=== PATIENT | female | born 1940 | race Caucasian/White ===

== ENCOUNTER 2016-09-28 16:26 | Emergency (ER) | payer MEDICARE, OTHER ==
[~2016-09-28] VITALS: Ht 162.6 cm; Wt 67.4 kg
[~2016-09-28 16:26] MED LIST: DENO60DI SQ; ENOX80SY5 SQ; LEVO100T5 PO; LEVO75TA5 PO; ROSU10TA PO; TRIA1CAP3 PO; WARF7.5T6 PO-COUM; ZOLP10TA PO
[2016-09-28 17:40] LABS: BLOOD UREA NITROGEN 20 mg/dL (7-18)
[2016-09-28] MEDS ORDERED: PHYTONADIONE 10 MG/ML, 1ML ONE (17:44)
[2016-09-28] MEDS ORDERED: PHYTONADIONE 5 MG in SODIUM CHLORIDE 0.9% 50 ML IV ONE (18:00)
[2016-09-28] MEDS ORDERED: POTASSIUM CHLORIDE 20 MEQ TAB.ER.PRT PO ONE (18:30)
[2016-09-28] MEDS ORDERED: POTASSIUM CHLORIDE 20 MEQ TAB.ER.PRT ONE (19:54)
[2016-09-28 20:03] VITALS: BP 116/71
== END 2016-09-28 20:06 | disposition home or self-care (01) ==
LOC: ED 19:03
DX: D68.8 Other specified coagulation defects (principal); Z85.3 Personal history of malignant neoplasm of breast
CPT/HCPCS: 36415; 80048; 82040; 85025; 85610; 85730; 96365; 99285; J3430

== ENCOUNTER 2017-04-25 12:00 | Inpatient (IN) | payer MEDICARE, OTHER ==
[~2017-04-25] VITALS: Ht 160 cm; Wt 64.8 kg
[2017-04-25 13:10] LABS: HEMATOCRIT 41.2 % (34.6-47.8); HEMOGLOBIN 14.1 g/dL (11.7-16.4); WHITE BLOOD COUNT 8.8 x10^3/uL (3.4-10)
[2017-04-25 13:18] LABS: BLOOD UREA NITROGEN 12 mg/dL (7-18)
[2017-04-25 13:50] LABS: IS PT STATUS REG ER OR PRE ER? YES
[2017-04-25] MEDS ORDERED: RIVA20TA PO (16:27)
[2017-04-25] MEDS ORDERED: VALA1000 PO (16:29)
[2017-04-25] MEDS ORDERED: DEXAMETHASONE 4 MG/ML, 1ML IVPush ONE (16:30)
[2017-04-25] MEDS ORDERED: DEXAMETHASONE 4 MG/ML, 1ML ONE (16:32)
[2017-04-25] MEDS ORDERED: morphine SULFATE 10 MG/ML, 1ML IVPush PRN (17:30)
[2017-04-25] MEDS ORDERED: SODIUM CHLORIDE FLUSH 10ML SYR IVF PRN (17:30)
[2017-04-25] MEDS ORDERED: ONDANSETRON 2MG/ML, 2ML IVPush PRN (18:00)
[2017-04-25] MEDS ORDERED: hydrALAzine 20 MG/ML, 1ML IVPush PRN (18:00)
[2017-04-25] MEDS: CEFTRIAXONE PMX 1GM/50ML 50 ML IV SCH (18:59)
[2017-04-25 19:30] VITALS: BP 126/82
[2017-04-25 19:43] VITALS: BP 126/82
[2017-04-25] MEDS: DEXAMETHASONE 4 MG/ML, 1ML IVPush SCH (20:09)
[2017-04-25] MEDS: TEMAZEPAM 15 MG CAPSULE PO PRN (20:58)
[2017-04-25] MEDS: ATORVASTATIN 20 MG TABLET PO SCH (20:58)
[2017-04-25] MEDS: morphine SULFATE 10 MG/ML, 1ML IVPush PRN (20:59)
[2017-04-25] MEDS: INSULIN ASPART 100 UNITS/ML, PEN SQ-INSULIN SCH (21:24)
[2017-04-26 01:30] VITALS: BP 119/76
[2017-04-26 04:25] LABS: HEMATOCRIT 40.2 % (34.6-47.8); HEMOGLOBIN 13.6 g/dL (11.7-16.4); WHITE BLOOD COUNT 7.3 x10^3/uL (3.4-10)
[2017-04-26] MEDS: DEXAMETHASONE 4 MG/ML, 1ML IVPush SCH ×4 (04:33→22:16)
[2017-04-26 04:47] LABS: ASPARTATE AMINO TRANSFERASE 17 U/L (15-37); BLOOD UREA NITROGEN 10 mg/dL (7-18)
[2017-04-26] MEDS: LEVOTHYROXINE 75 MCG TABLET PO SCH (07:09)
[2017-04-26] MEDS: INSULIN ASPART 100 UNITS/ML, PEN SQ-INSULIN SCH ×4 (07:34→21:00)
[2017-04-26 07:53] VITALS: BP 131/84
[2017-04-26] MEDS: morphine SULFATE 10 MG/ML, 1ML IVPush PRN ×2 (07:59→17:28)
[2017-04-26] MEDS: VALACYCLOVIR 500MG TABLET PO SCH (10:28)
[2017-04-26] MEDS: RIVAROXABAN 20 MG TABLET PO SCH (10:28)
[2017-04-26 14:17] VITALS: BP 114/74
[2017-04-26] MEDS: CEFTRIAXONE PMX 1GM/50ML 50 ML IV SCH (18:30)
[2017-04-26 19:56] VITALS: BP 112/71
[2017-04-26] MEDS: ATORVASTATIN 20 MG TABLET PO SCH (22:15)
[2017-04-26] MEDS: TEMAZEPAM 15 MG CAPSULE PO PRN (22:16)
[2017-04-27 01:25] VITALS: BP 120/76
[2017-04-27] MEDS: DEXAMETHASONE 4 MG/ML, 1ML IVPush SCH ×4 (04:10→21:35)
[2017-04-27] MEDS: LEVOTHYROXINE 75 MCG TABLET PO SCH (04:10)
[2017-04-27] MEDS: morphine SULFATE 10 MG/ML, 1ML IVPush PRN ×4 (04:20→18:47)
[2017-04-27] MEDS: INSULIN ASPART 100 UNITS/ML, PEN SQ-INSULIN SCH ×4 (07:00→21:00)
[2017-04-27 07:26] VITALS: BP 120/75
[2017-04-27] MEDS: RIVAROXABAN 20 MG TABLET PO SCH (09:50)
[2017-04-27] MEDS: VALACYCLOVIR 500MG TABLET PO SCH (09:50)
[2017-04-27] MEDS ORDERED: POLYETHYLENE GLYCOL 17 GM PACKET PO PRN (10:00)
[2017-04-27 13:36] VITALS: BP 105/65
[2017-04-27] MEDS: DOCUSATE 100 MG CAPSULE PO SCH ×2 (16:19→21:35)
[2017-04-27] MEDS: CEFTRIAXONE PMX 1GM/50ML 50 ML IV SCH (18:38)
[2017-04-27] MEDS: TEMAZEPAM 15 MG CAPSULE PO PRN (21:35)
[2017-04-27] MEDS: ATORVASTATIN 20 MG TABLET PO SCH (21:35)
[2017-04-27 21:48] VITALS: BP 133/68
[2017-04-28 01:03] VITALS: BP 121/75
[2017-04-28] MEDS: DEXAMETHASONE 4 MG/ML, 1ML IVPush SCH ×2 (04:18→12:58)
[2017-04-28] MEDS: LEVOTHYROXINE 75 MCG TABLET PO SCH (05:27)
[2017-04-28] MEDS: morphine SULFATE 10 MG/ML, 1ML IVPush PRN ×2 (08:56→13:59)
[2017-04-28] MEDS: INSULIN ASPART 100 UNITS/ML, PEN SQ-INSULIN SCH ×2 (08:59→13:00)
[2017-04-28] MEDS: DOCUSATE 100 MG CAPSULE PO SCH (09:00)
[2017-04-28] MEDS: RIVAROXABAN 20 MG TABLET PO SCH (09:00)
[2017-04-28] MEDS: VALACYCLOVIR 500MG TABLET PO SCH (09:00)
[2017-04-28 09:03] VITALS: BP 115/69
== END 2017-04-28 14:30 | disposition home or self-care (01) | DRG 543 ==
LOC: ED 13:12 → EDIP 17:26 → 3NW 18:02
PROVIDERS: ADMIT Internal Medicine; ATTEND Internal Medicine
DX: C79.51 Secondary malignant neoplasm of bone (principal); C78.00 Secondary malignant neoplasm of unspecified lung; C79.31 Secondary malignant neoplasm of brain; C79.89 Secondary malignant neoplasm of other specified sites; J32.9 Chronic sinusitis, unspecified; N39.0 Urinary tract infection, site not specified; G83.4 Cauda equina syndrome; C50.912 Malignant neoplasm of unspecified site of left female breast; E89.0 Postprocedural hypothyroidism; G57.93 Unspecified mononeuropathy of bilateral lower limbs; M81.0 Age-related osteoporosis without current pathological fracture; R32 Unspecified urinary incontinence; M54.5 Low back pain; I10 Essential (primary) hypertension; Z00.6 Encounter for examination for normal comparison and control in clinical research program; Z17.1 Estrogen receptor negative status [ER-]; Z80.0 Family history of malignant neoplasm of digestive organs; Z85.038 Personal history of other malignant neoplasm of large intestine; Z85.3 Personal history of malignant neoplasm of breast; Z85.42 Personal history of malignant neoplasm of other parts of uterus; Z90.49 Acquired absence of other specified parts of digestive tract; Z90.710 Acquired absence of both cervix and uterus
CPT/HCPCS: 36415; 72157; 72158; 77290; 77295; 77300; 77334; 77387; 77412; 77470; 80048; 80053; 81001; 82040; 82962; 83735; 84100; 84439; 84443; 84484; 85025; 87040; 87077; 87086; 87186; 93005; 96374; J0696; J1100; J1815; J2405; J2270